=== PATIENT | female | born 1945 | race Caucasian/White ===

== ENCOUNTER 2016-06-09 08:23 | Emergency (ER) | payer MEDICARE ==
[~2016-06-09] VITALS: Ht 167.6 cm; Wt 80.0 kg
[~2016-06-09 08:23] MED LIST: ALPR0.5T3 PO; AMBI10TA PO; ATOR40TA49 PO; DOXY100T PO; FEXO60TA PO; FLON0.053; ISOS30; LEVO50TA4 PO; METO25 PO; NITR.3 SL; PERC5TAB12 PO; RIVA20 PO; RYTH150T PO; VALT500T PO; ZYRT10TA12 PO
[2016-06-09 08:24] VITALS: BP 150/86; PULSE 70; RESP 20; TEMP 98.1; O2SAT 97
--- NOTE | 2016-06-09 09:20 | RADRPT ---
EXAM DATE/TIME: 06/09/2016 09:02 [place] COMPARISON: No previous studies available for comparison. INDICATIONS : Trauma MEDICAL HISTORY : None. SURGICAL HISTORY : None. ENCOUNTER: Initial ACUITY: 1 day PAIN SCORE: 3/10 LOCATION: Left HIP FINDINGS: No fracture is seen. The left hip joint is normally aligned. There is cystic change at the superior f emoral head. There some degenerative changes in the lower lumbar spine. Left sacroiliac joint is norm al. Phleboliths are seen in the pelvis. CONCLUSION: No acute disease. Tonny Manzo MD on June 09, 2016 at 9:17 Board Certified Radiologist. This report was verified electronically.
[2016-06-09] MEDS ORDERED: OMEP20TA PO (09:26)
[2016-06-09] MEDS ORDERED: VALT500T PO (09:26)
[2016-06-09] MEDS ORDERED: FEXO15TA PO (09:26)
[2016-06-09] MEDS ORDERED: VITAMINB PO (09:26)
[2016-06-09] MEDS ORDERED: DOXY1CAP91 PO (09:26)
[2016-06-09] MEDS ORDERED: ALPR.25 PO (09:26)
[2016-06-09] MEDS ORDERED: LEVO25TA4 PO (09:26)
[2016-06-09] MEDS ORDERED: FIBE625T PO (09:26)
[2016-06-09] MEDS ORDERED: AMBI10TA PO (09:26)
[2016-06-09] MEDS ORDERED: CALC500T35 (09:26)
[2016-06-09] MEDS ORDERED: FLUTI44I INH (09:26)
[2016-06-09] MEDS ORDERED: NITR0.4S SL (09:26)
[2016-06-09] MEDS ORDERED: Imdur PO (09:26)
[2016-06-09] MEDS ORDERED: XARE20TA PO (09:26)
[2016-06-09] MEDS ORDERED: COQ-100C2 PO (09:26)
[2016-06-09] MEDS ORDERED: ASPI1TAB69 PO (09:26)
[2016-06-09] MEDS ORDERED: METO100T PO (09:26)
[2016-06-09] MEDS ORDERED: LACTCAP8 PO (09:26)
[2016-06-09] MEDS ORDERED: ZYRT10TA PO (09:26)
[2016-06-09] MEDS ORDERED: DICY20TA10 PO (09:26)
[2016-06-09] MEDS ORDERED: ATOR40TA16 PO (09:26)
--- NOTE | 2016-06-09 10:33 | PD ---
HPI Chief Complaint: Fall Time Seen by Provider: 08:36 Travel History International Travel<30 days: No Contact w/Intl Traveler<30days: No Traveled to known affect area: No History of Present Illness HPI 70-year-old female on anticoagulation for history of cardiac disease here with complaint of fall and leg swelling. Patient had a mechanical fall yesterday, tripping on an ottoman. She fell, hitting her left hip. She has been able ambulate with minimal pain. She notes a swelling and bruising over the left lateral hip that has gotten increasingly bigger overnight prompting her ER visit. Mild pain, throbbing. PFSH Past Medical History Arthritis: Yes Asthma: No Anxiety: Yes Depression: No Heart Rhythm Problems: Yes Cancer: No Cardiovascular Problems: Yes High Cholesterol: No Chest Pain: No Congestive Heart Failure: No COPD: No Diabetes: No Endocrine: Yes Gastrointestinal Disorders: No Genitourinary: No Hepatitis: No Hiatal Hernia: No Hypertension: Yes Immune Disorder: No Implanted Vascular Access Dvce: No Medical other: No Musculoskeletal: Yes (ARTHRITIS, BACK) Neurologic: No Psychiatric: Yes (ANXIETY) Reproductive: No Respiratory: Yes (SLEEP APNEA, C PAP ) Sleep Apnea: Yes Thyroid Disease: Yes Tetanus Vaccination: Unknown Influenza Vaccination: Yes Past Surgical History Abdominal Surgery: No AICD: No Body Medical Devices: NONE Cardiac Surgery: No Ear Surgery: No Endocrine Surgery: No Eye Surgery: No Genitourinary Surgery: No Gynecologic Surgery: Yes (HYSTERECTOMY) Joint Replacement: Yes (LEFT KNEE) Neurologic Surgery: No Oral Surgery: No Pacemaker: No Thoracic Surgery: No Other Surgery: Yes Social History Alcohol Use: Yes (every day) Tobacco Use: No Substance Use: No Allergies-Medications (Allergen,Severity, Reaction): Coded Allergies: Morphine (Unverified Allergy, Severe, SKIN FLUSHING, 12/17/12) Penicillin (Unverified Allergy, Severe, REDNESS; SWELLING ; THROAT CLOSING , 12/17/12) Pseudoephedrine (Unverified Allergy, Severe, SEVERE RASH, 12/17/12) Uncoded Allergies: SOAP (Allergy, Severe, RASH, 09/09/12) TAPE (Adverse Reaction, Intermediate, 12/24/12) RED CHRISTIANSON FROM TAPE AND TEARS SKIN Reported Meds & Prescriptions Reported Meds & Active Scripts Active Reported Xarelto (Rivaroxaban) 20 Mg Tab 20 Mg PO DAILY Fibercon (Calcium Polycarbophil) 625 Mg Tab 625 Mg PO PRN Probiotic (Lactobacillus Acidophilus) 1 Cap Cap 1 Tab PO DAILY Flovent Hfa 10.6 GM Inh (Fluticasone Propionate) 44 Mcg/Act Inh 2 Puff INH BID Use daily at the same time. Valtrex (Valacyclovir HCl) 500 Mg Tab 500 Mg PO DAILY Omeprazole 20 Mg Tab 20 Mg PO DAILY Calcium (Oyster Shell) 500 Mg Tab [[id number]] 2,500 Mg PO DAILY Nitrostat SL (Nitroglycerin) 0.4 Mg Subl 0.4 Mg SL DIRECTED PRN 1 tablet under the tongue as needed for chest pain. Repeat every 5 minutes for a total of 3 DOSES or call 911 if NO relief. Coq-10 (Coenzyme Q10 (Ubidecarenone)) 100 Mg Cap 100 Mg PO DAILY Dicyclomine (Dicyclomine HCl) 20 Mg Tab 20 Mg PO QID Doxycycline (Doxycycline (Monohydrate)) 100 Mg Cap 100 Mg PO PRN [Imdur] 90 Mg PO Metoprolol Tartrate 100 Mg Tab 100 Mg PO BID Xanax (Alprazolam) 0.25 Mg Tab 0.25 Mg PO Q4H PRN Aspirin 81 Mg Tabdr 81 Mg PO DAILY Ambien (Zolpidem Tartrate) 10 Mg Tab 10 Mg PO HS PRN Xarelto (Rivaroxaban) 20 Mg Tab 20 Mg PO DAILY Levothyroxine (Levothyroxine Sodium) 25 Mcg Tab 0.5 Mcg PO DAILY Lola Allergy (Fexofenadine HCl) 180 Mg Tab 180 Mg PO DAILY Zyrtec Allergy (Cetirizine HCl) 10 Mg Tab 10 Mg PO DAILY Atorvastatin (Atorvastatin Calcium) 40 Mg Tab 60 Mg PO HS Review of Systems Except as stated in HPI: all other systems reviewed are Neg Physical Exam Narrative GENERAL: Well-appearing female in no acute distress SKIN: Warm and dry. Swollen ecchymosis over the lateral left thigh, palpable hematoma. No erythema, induration. HEAD: Normocephalic. EYES: No scleral icterus. No injection or drainage. ENT: No nasal bleeding or discharge. Mucous membranes pink and moist. NECK: Supple CARDIOVASCULAR: Regular rate and rhythm. RESPIRATORY: No accessory muscle use. MUSCULOSKELETAL: with range of motion of the left hip patient has mild pain at the swollen area. No pain in the hip itself. Able to ambulate without any difficulty 5 out of 5 strength. NEUROLOGICAL: Awake and alert. Normal speech. PSYCHIATRIC: Appropriate mood and affect; insight and judgment normal. Data Data Last Documented VS Vital Signs Date Time Temp Pulse Resp B/P Pulse Ox O2 Delivery O2 Flow Rate FiO2 06/09/16 08:32 96 Room Air 06/09/16 08:24 98.1 70 20 150/86 Orders Hip, Uni(Ap&Lat) Wo Ap Pelvis (06/09/16 ) MDM Medical Decision Making Medical Screen Exam Complete: Yes Emergency Medical Condition: Yes Medical Record Reviewed: Yes Differential Diagnosis 70-year-old female here with complaint of left thigh pain. Exam is consistent with hematoma to the left thigh. She does have slight pain with range of motion of the left hip, fracture of the hip is less likely. Her hematoma has not rapidly expanded making active bleeding unlikely. Narrative Course X-ray of the left hip was obtained showing degenerative changes but no acute abnormalities. Patient was able to ambulate without difficulty. Ice applied and she was encouraged to use this for home. Diagnosis Primary Impression: Hematoma of left thigh Qualified Code: S70.12XA - Hematoma of left thigh, initial encounter Referrals: Primary Care Physician as needed Patient Instructions: General Instructions, Hematoma (ED) Additional Instructions: Ice to the affected area, elevate as much as possible. Follow-up with primary care provider symptoms persist and return to the ER for the warning signs discussed. Med/Other Pt SpecificInfo: No Change to Meds Disposition: 01 DISCHARGE HOME Condition: Stable Joellen Olivarez MD Jun 09, 2016 10:33
[2016-06-10] MEDS ORDERED: CYAN25003 SL (12:50)
== END 2016-06-09 11:12 | disposition home or self-care (01) ==
LOC: NEPE 08:23
DX: S70.12XA Contusion of left thigh, initial encounter (principal); I10 Essential (primary) hypertension; W01.190A Fall on same level from slipping, tripping and stumbling with subsequent striking against furniture, initial encounter; Y93.01 Activity, walking, marching and hiking; Y92.008 Other place in unspecified non-institutional (private) residence as the place of occurrence of the external cause
CPT/HCPCS: 73502; 99284